=== PATIENT | male | born 1970 | race Caucasian/White ===

== ENCOUNTER 2017-10-09 09:29 | Emergency (ER) | payer BC ==
[2017-10-09 09:33] VITALS: BMI 42.2
--- NOTE | 2017-10-09 10:04 | DR.SOBA ---
HPI - Time Seen Time seen: 10:00 - Primary Care Physician Primary Care Physician: NAZANIN - HPI Comment HPI Comment: CHEST PAIN IS MAINLY PRESSURE AND NON RADIATING. HISTORY HTN AND DIABETES. - Complaints Chief Complaint Doctors Comments: CHEST PRESSURE AND SOB ON EXERTION TIMES 3 DAYS. Chief Complaint:: PT. C/O SHORTNESS OF BREATH AND CHEST PRESSURE WHICH BEGAN ON TUESDAY. PT. DENIES RADIATING PAIN. - Reviewed Nurses Notes Reviewed: Yes - Source History Provided: Patient, Family Member - Mode of Arrival Mode of Arrival: Ambulatory - Timing Onset of Chief Complaint: 10/06/17 - Duration Duration: Days - Context Onset:: At Rest, With Heavy Exertion PE Risk Factors:: None History of:: None Prehospital Care:: None - Modifying Factors Worsens:: Nothing Improves:: Nothing - If Chest Pain Quality: Heavy Location: Right Upper Chest - If Cough Cough: Nonproductive PMH - PMH Past Medical History: Yes Past Medical History: Diabetes, Dyslipidemia, Hypertension Past Surgical History: Yes Surgical History: Cholecystectomy - Family History History of Family Medical Conditions: Yes Family Medical History: [place], Coronary Artery Disease, Hypertension - Social History Does patient currently use any type of tobacco product: Yes Have you used tobacco products in the last 12 months: Yes Type of Tobacco Use: DIPS Does any household member use tobacco: No Alcohol Use: None Do you use any recreational Drugs:: No Lives With: Spouse Lives Where: Home - infectious screening In the last 2 months have you had wt loss of >10#?: NO Have you had fever, night sweats or hemotysis?: No Have you traveled outside the country in the last 6 months?: No Isolation: Standard ROS - Review of Systems Constitutional: Weakness, Fatigue. negative: Chills, Fever Eyes: No Symptoms Reported. negative: Eye Pain, Discharge ENTM: Nose Congestion. negative: Ear Pain Respiratoy: Non-Productive Cough, Short of Breath. negative: Wheezing, Hemoptysis Cardiovascular: Chest Pain Gastrointestinal/Abdominal: No Symptoms Reported Genitourinary: No Symptoms Reported Neurological: No Symptoms Reported Musculoskeletal: No Symptoms Reported Integumentary: No Symptoms Reported Hematologic/Lymphatic: No Symptoms Reported Endocrine: No Symptoms Reported All Other Systems: Reviewed and Negative PE - Vital Signs Vitals: Temperature 97.6 F Pulse Rate [Apical] 103 Pulse Rate 107 Respiratory Rate 20 Blood Pressure [Right Arm] 117/81 Blood Pressure 113/82 O2 Sat by Pulse Oximetry 96 - General Limitations: No Limitations General Appearance: Alert - Head Head Exam: Normal Inspection - Eyes Eye exam: Normal Appearance - ENT ENT Exam: Normal External Ear Exam - Neck Neck Exam: Trachea Midline - Chest Chest Inspection: Symmetric Chest Wall Rise - Respiratory Respiratory Exam: Normal Lung Sounds Bilat Respiratory Exam: Bilateral Rhonchi, Lower Rhonchi - Cardiovascular Cardiovascular Exam: Regular Rate, Normal Rhythm, Normal Heart Sounds - Abdominal Exam Abdominal Exam: Normal Bowel Sounds, Soft. negative: Tenderness - Extremities Extremities Exam: Edema - Back Back Exam: Normal Inspection - Neurologic Neurological Exam: Alert, Oriented X3 - Psychiatric Psychiatric Exam: Normal Affect, Normal Mood - Skin Skin Exam: Normal Color MDM - Additional Information Obtained Additional Information Obtained From: Family - Differential Diagnosis Differential Diagnosis: Bronchitis, CHF, Mycardial Infarction, Pneumonia, Pulmonary embolism Course - Treatment Treatment: SEE ORDERS. IV LASIX, PATIENT DIURESISNG IN ED. SOB IMPROVING. - Reevaluation 1st: Improved - Consultation Consultation Comments: DISCUSS PATIENT WITH DR. BURNS. WILL SEE PATIENT IN AM IN HIS OFFICE. - Education/Counseling Education/Counseling: Patient, Education Educated On: Diagnosis ROR - Labs Reviewed Laboratory Results Reviewed?: Yes Result Diagrams: 10/09/17 10:10 10/09/17 10:10 Laboratory: WBC 7.7 X10^3/uL (3.6-10.0) 10/09/17 10:10 RBC 4.36 X10^6/uL (4.7-6.0) L 10/09/17 10:10 Hgb 12.0 g/dL (13.5-18.0) L 10/09/17 10:10 Hct 35.9 % (42.0-54.0) L 10/09/17 10:10 MCV 82.4 fL (80.0-100.0) 10/09/17 10:10 MCH 27.4 pg (27.0-34.0) 10/09/17 10:10 MCHC 33.3 g/dL (33.0-35.0) 10/09/17 10:10 RDW 14.3 % (11.6-16.5) 10/09/17 10:10 Plt Count 249 X10^3/uL (150.0-450.0) 10/09/17 10:10 MPV 7.4 fL (7.4-11.0) 10/09/17 10:10 Neut % 60.3 % (42.0-75.0) 10/09/17 10:10 Lymph % 25.8 % (21.0-51.0) 10/09/17 10:10 Moody % 9.7 % (0.0-13.0) 10/09/17 10:10 Eos % 3.4 % (0.9-2.9) H 10/09/17 10:10 Baso % 0.8 % (0.2-1.0) 10/09/17 10:10 Neut # 4.6 x10^3/uL (2.2-4.8) 10/09/17 10:10 Lymph # 2.0 X10^3/uL (1.3-2.9) 10/09/17 10:10 Moody # 0.7 x10^3/uL (0.3-0.8) 10/09/17 10:10 Eos # 0.3 x10^3/uL (0.0-0.2) H 10/09/17 10:10 Baso # 0.1 X10^3/uL (0.0-0.1) 10/09/17 10:10 Absolute Nucleated RBC 0.0 /100WBC 10/09/17 10:10 D-Dimer 883 ng/mL (0-400) H* 10/09/17 10:10 Sodium 144 mmol/L (136-145) 10/09/17 10:10 Corrected Sodium 145 mmol/L (136-145) 10/09/17 10:10 Potassium 3.9 mmol/L (3.5-5.1) 10/09/17 10:10 Chloride 109 mmol/L (98-107) H 10/09/17 10:10 Carbon Dioxide 27.3 mmol/L (21-32) 10/09/17 10:10 BUN 11 mg/dL (7-18) 10/09/17 10:10 Creatinine 0.96 mg/dL (0.70-1.30) 10/09/17 10:10 Est GFR (MDRD) Af Amer > 60 (>60) 10/09/17 10:10 Est GFR (MDRD) Non-Af > 60 (>60) 10/09/17 10:10 Glucose 146 mg/dL (65-99) H 10/09/17 10:10 Calcium 8.3 mg/dL (8.5-10.1) L 10/09/17 10:10 Corrected Calcium 8.9 mg/dL (8.5-10.1) 10/09/17 10:10 Total Bilirubin 0.40 mg/dL (0.2-1.0) 10/09/17 10:10 AST 32 Units/L (15-37) 10/09/17 10:10 ALT 74 Units/L (12-78) 10/09/17 10:10 Alkaline Phosphatase 43 Units/L (46-116) L 10/09/17 10:10 Creatine Kinase 250 Units/L (39-308) 10/09/17 10:10 CK-MB (CK-2) 2.6 ng/mL (0-4.0) 10/09/17 10:10 CK/CKMB % Calc 1.0 % (<4) 10/09/17 10:10 Troponin I < 0.02 ng/mL (0-1.5) 10/09/17 10:10 B-Natriuretic Peptide 516 pg/mL (0-79) H* 10/09/17 10:10 Total Protein 6.5 g/dL (6.4-8.2) 10/09/17 10:10 Albumin 3.2 g/dL (3.4-5.0) L 10/09/17 10:10 Globulin 3.3 g/dL (2.5-4.5) 10/09/17 10:10 Albumin/Globulin Ratio 1.0 Ratio (1.1-2.1) L 10/09/17 10:10 - XRAY XRAY Interpreted by: Radiologist XRAY Findings: REPORT DISCUSS WITH PATIENT AND . - EKG Rhythm: NSR (EKG NOTED) - Diagnosis Discharge Problem: CHD (congenital heart disease) Chest pain Qualifiers: Chest pain type: precordial pain Qualified Code(s): R07.2 - Precordial pain Dyspnea Qualifiers: Dyspnea type: shortness of breath Qualified Code(s): R06.02 - Shortness of breath; R06.00 - Dyspnea, unspecified; R06.01 - Orthopnea - Discharge Plan Disposition: 01 HOME, SELF-CARE Condition: Stable Prescriptions: Furosemide [Lasix] 40 mg PO QAM #30 tab Potassium Chloride 10 meq PO DAILY #30 tab.er.prt - Follow ups/Referrals Follow ups/Referrals: YEISON MAXWELL [Primary Care Provider] - 3 days - Instructions Instructions: Heart Failure, [id number], Chest Pain Observation Additional Instructions: RETURN TO ED IF WORSE. SEE DR. BURNS IN AM AT [facility] IN [place] AT 13:00PM
[2017-10-09 10:25] LABS: BASOPHILS # (AUTO) 0.1 X10^3/uL (0.0-0.1); BASOPHILS % (AUTO) 0.8 % (0.2-1.0); EOSINOPHILS # (AUTO) 0.3 x10^3/uL (0.0-0.2); EOSINOPHILS % (AUTO) 3.4 % (0.9-2.9); HEMATOCRIT 35.9 % (42.0-54.0); LYMPHOCYTES % (AUTO) 25.8 % (21.0-51.0); MEAN CORPUSCULAR HEMOGLOBIN 27.4 pg (27.0-34.0); MEAN CORPUSCULAR HGB CONC 33.3 g/dL (33.0-35.0); MEAN CORPUSCULAR VOLUME 82.4 fL (80.0-100.0); MEAN PLATELET VOLUME 7.4 fL (7.4-11.0); MONOCYTES # (AUTO) 0.7 x10^3/uL (0.3-0.8); MONOCYTES % (AUTO) 9.7 % (0.0-13.0); NEUTROPHILS # (AUTO) 4.6 x10^3/uL (2.2-4.8); NEUTROPHILS % (AUTO) 60.3 % (42.0-75.0); PLATELET COUNT 249 X10^3/uL (150.0-450.0); RED BLOOD COUNT 4.36 X10^6/uL (4.7-6.0); RED CELL DISTRIBUTION WIDTH 14.3 % (11.6-16.5); WHITE BLOOD COUNT 7.7 X10^3/uL (3.6-10.0)
[2017-10-09 10:45] LABS: BLOOD UREA NITROGEN 11 mg/dL (7-18); CALCIUM 8.3 mg/dL (8.5-10.1); CARBON DIOXIDE 27.3 mmol/L (21-32); CHLORIDE 109 mmol/L (98-107); COR NA(FOR HYPERGLY) 145 mmol/L (136-145); CREATININE 0.96 mg/dL (0.70-1.30); SODIUM 144 mmol/L (136-145); TROPONIN I < 0.02 ng/mL (0-1.5); eGFR BLACK RACES > 60 (>60); eGFR NON BLACK RACES > 60 (>60)
[2017-10-09 10:49] LABS: ALANINE AMINOTRANSFERASE 74 Units/L (12-78); ALBUMIN 3.2 g/dL (3.4-5.0); ALKALINE PHOSPHATASE 43 Units/L (46-116); ASPARTATE AMINO TRANSFERASE 32 Units/L (15-37); COR CA(FOR HYPOALB) 8.9 mg/dL (8.5-10.1); CREATINE KINASE 250 Units/L (39-308); CREATINE KINASE MB 2.6 ng/mL (0-4.0); TOTAL PROTEIN 6.5 g/dL (6.4-8.2)
[2017-10-09] MEDS ORDERED: NS 500 ML IV 500 ML IV ONE (11:39)
[2017-10-09] MEDS ORDERED: NS 100 ML IV 100 ML IV ONE (11:50)
--- NOTE | 2017-10-09 12:26 | CT ---
STUDY: CTA CHEST WITH CONTRAST History: Shortness of breath and chest pressure. Comparison: None. Technique: Multiple axial images of the chest were obtained from the thoracic inlet to the upper abdo men after the administration of IV contrast. Image acquisition was optimized for evaluation of pulmon joseph arterial system. 3D, coronal and sagittal reformatted images were performed and reviewed. Automat ed exposure control (AEC) was utilized to adjust the MA and/or kV. Findings: Images were obtained during peak opacification of the aorta, and not during pulmonary arter ial phase. Pulmonary arteries are not adequately enhanced. There is no evidence of aortic aneurysm o r dissection. There is no significant pericardial effusion. Shotty lymph nodes, likely reactive, are noted in the mediastinum. No pathologically enlarged lymph n odes are identified. There appears to be some central pulmonary vascular congestion. There is increas ed prominence of pulmonary interstitial markings bilaterally, probably most prominent in the right mi ddle and lower lobes. Additionally, there is some patchy airspace opacities in both lower lobes and r ight middle lobe. There is no evidence of consolidation, significant effusion or pneumothorax. The visualized solid visceral organs in the upper abdomen are otherwise unremarkable. IMPRESSION: 1. Technically inadequate CTA examination of the chest for evaluation of central pulmonary arterial s ystem. 2. Central pulmonary vascular congestion, with prominence of pulmonary interstitial markings and patc hy opacities in both lower lobes and right middle lobe. Findings are suggestive of a interstitial michael ma. An infectious or inflammatory process could have a similar appearance. Clinical correlation is re quired. 3. Would consider ventilation-perfusion lung scan for further evaluation or repeat CTA as clinically warranted. Reported By:
[2017-10-09 12:28] VITALS: BP 117/81
--- NOTE | 2017-10-09 12:49 | RAD ---
The examination: AP chest History: SOB Findings: Borderline to mild cardiomegaly with central pulmonary vascular distention. There is no anamaria dence for consolidation or pneumothorax or pleural fluid. Impression: Cardiac prominence with pulmonary vascular congestion. Reported By:
[2017-10-09] MEDS ORDERED: LASIX IVP ONE ×2 (13:24→13:29)
[2017-10-09] MEDS ORDERED: MICRO K EXTEN CAP 10 MEQ PO ONE ×2 (14:41→14:42)
[2017-10-10 09:11] LABS: B-TYPE NATRIURETIC PEPTIDE 516 pg/mL (0-79)
== END 2017-10-09 14:48 | disposition home or self-care (01) ==
LOC: ER 09:41
DX: Q24.9 Congenital malformation of heart, unspecified (principal); R07.2 Precordial pain; R06.02 Shortness of breath; R06.00 Dyspnea, unspecified; R06.01 Orthopnea
CPT/HCPCS: 36415; 71045; 71275; 80053; 82550; 82553; 83880; 84484; 85025; 85378; 93005; 93010; 96365; 96374; 99283; 99285; A4222; J1940

== ENCOUNTER 2017-10-10 14:39 | Observation (INO) | payer BC ==
--- NOTE | 2017-10-10 14:51 | DR.H&P ---
H&P - History & Physical for Day of: H&P Date: 10/10/17 - Chief Complaint Chief Complaint: Shortness of breath - Allergies Allergies/Adverse Reactions: Allergies Allergy/AdvReac Type Severity Reaction Status Date / Time Penicillins Allergy Verified 10/09/17 09:34 - History of Present Illness History of Present Illness: the patient is a 42-year-old male who was seen in the emergency departmentast night complaining shortness of breath The patient did have some pulmonary edema noted on imaging studies. The patient did not want to be admitted at this and did want to try to follup in outpatient setting. However, when patient presented for hospital followup in the office setting there was noted to be an increase in shortness of breath. Subsequently, the patient will be admitted for further cardiac work up with tentative plans to transfer out for heart cath on 10/11/17. - Past Medical History Past Medical History: CHF, Diabetes, Dyslipidemia, Hypertension - Past Surgical History Surgical History: Cholecystectomy - Family History Family Medical History: [place], Coronary Artery Disease, Hypertension - Social History Drug Use: None - Review of Systems Constitutional: No Symptoms Reported Eyes: No Symptoms Reported ENT: No Symptoms Reported Respiratory: No Symptoms Reported Cardiovascular: Chest Pain, See HPI Gastrointestinal: No Symptoms Reported Genitourinary: No Symptoms Reported Musculoskeletal: No Symptoms Reported Skin: No Symptoms Reported Neurological: No Symptoms Reported - Physical Exam Vital Signs: Blood Pressure [Right Arm] 117/81 Blood Pressure 117/81 Oriented: Normal Eyes: Normal Ear: Normal Nose: Normal Throat: Normal Respiratory: Wheezes Throughout Cardiovascular: Normal : Normal Auscultation: Bowel Sounds: Normal Palpation: Normal Tenderness: Normal Skin: Normal Musculoskeletal: Normal Psychiatric: Normal Mood Description: Calm Affect: Normal Speech Pattern: Clear - Assessment/Plan (1) CHF (congestive heart failure) Qualifiers: Heart failure type: unspecified Status: Acute Plan: See chart for further orders (2) Chest pain Qualifiers: Chest pain type: precordial pain Qualified Code(s): R07.2 - Precordial pain Status: Acute Plan: See chart for further orders (3) Dyspnea Qualifiers: Dyspnea type: shortness of breath Qualified Code(s): R06.02 - Shortness of breath; R06.00 - Dyspnea, unspecified; R06.01 - Orthopnea Status: Acute Plan: See chart for further orders
[2017-10-10 17:01] LABS: BASOPHILS # (AUTO) 0.1 X10^3/uL (0.0-0.1); BASOPHILS % (AUTO) 1.1 % (0.2-1.0); EOSINOPHILS # (AUTO) 0.3 x10^3/uL (0.0-0.2); EOSINOPHILS % (AUTO) 2.8 % (0.9-2.9); HEMOGLOBIN 12.8 g/dL (13.5-18.0); LYMPHOCYTES # (AUTO) 2.1 X10^3/uL (1.3-2.9); LYMPHOCYTES % (AUTO) 21.7 % (21.0-51.0); MEAN CORPUSCULAR HEMOGLOBIN 27.3 pg (27.0-34.0); MEAN CORPUSCULAR HGB CONC 33.6 g/dL (33.0-35.0); MEAN CORPUSCULAR VOLUME 81.5 fL (80.0-100.0); MEAN PLATELET VOLUME 7.5 fL (7.4-11.0); MONOCYTES % (AUTO) 10.5 % (0.0-13.0); NEUTROPHILS # (AUTO) 6.3 x10^3/uL (2.2-4.8); NEUTROPHILS % (AUTO) 63.9 % (42.0-75.0); PLATELET COUNT 298 X10^3/uL (150.0-450.0); RED BLOOD COUNT 4.67 X10^6/uL (4.7-6.0); RED CELL DISTRIBUTION WIDTH 14.9 % (11.6-16.5); WHITE BLOOD COUNT 9.9 X10^3/uL (3.6-10.0)
[2017-10-10] MEDS: LASIX IVP SCH ×2 (17:14→21:40)
[2017-10-10 17:26] LABS: BILIRUBIN,URINE NEGATIVE (NEGATIVE); BLOOD/HEMOGLOBIN,URINE NEGATIVE (NEGATIVE); GLUCOSE, URINE NEGATIVE (NEGATIVE); KETONES,URINE NEGATIVE (NEGATIVE); LEUKOCYTE ESTERASE ,URINE NEGATIVE (NEGATIVE); NITRITES,URINE NEGATIVE (NEGATIVE); PH,URINE 6.5 (5.0 - 8.0); PROTEIN,URINE NEGATIVE (NEGATIVE); UROBILINOGEN,URINE NORMAL (NORMAL)
[2017-10-10 17:27] LABS: ALANINE AMINOTRANSFERASE 78 Units/L (12-78); ALBUMIN 3.4 g/dL (3.4-5.0); ALKALINE PHOSPHATASE 48 Units/L (46-116); ASPARTATE AMINO TRANSFERASE 31 Units/L (15-37); BLOOD UREA NITROGEN 14 mg/dL (7-18); CALCIUM 8.7 mg/dL (8.5-10.1); CARBON DIOXIDE 29.6 mmol/L (21-32); CHLORIDE 107 mmol/L (98-107); CKMB % 1.1 % (<4); COR NA(FOR HYPERGLY) 145 mmol/L (136-145); CREATINE KINASE 272 Units/L (39-308); CREATINE KINASE MB 2.9 ng/mL (0-4.0); CREATININE 1.04 mg/dL (0.70-1.30); SODIUM 144 mmol/L (136-145); TOTAL PROTEIN 6.9 g/dL (6.4-8.2); TROPONIN I < 0.02 ng/mL (0-1.5); eGFR BLACK RACES > 60 (>60); eGFR NON BLACK RACES > 60 (>60)
[2017-10-10 17:42] LABS: COLOR,URINE PALE YELLOW (YELLOW)
[2017-10-10 17:43] LABS: APPEARANCE,URINE CLEAR (CLEAR); BACTERIA,URINE TRACE /HPF (NEGATIVE); RBC,URINE NONE SEEN /HPF (NEGATIVE); SQUAMOUS EPITHELIAL CELL,UR NEGATIVE /HPF (NEGATIVE)
[2017-10-10 17:58] VITALS: BMI 44.6
--- NOTE | 2017-10-10 18:09 | RAD ---
Indication: Chest pain Exam: Portable chest Comparison: 10/09/2017 Findings: The heart is borderline enlarged but less prominent. The pulmonary vessels are less promine nt centrally . The lungs are hypoinflated with minimal interstitial and linear densities along the junior ng bases which are less prominent. No effusion is seen. The bones are intact. Impression: Slight decrease in the heart size with slowly resolving pulmonary edema. Resolving bibasilar atelectasis. Reported By:
[2017-10-10 21:20] LABS: CKMB % 0.9 % (<4); CREATINE KINASE 301 Units/L (39-308); CREATINE KINASE MB 2.6 ng/mL (0-4.0); TROPONIN I < 0.02 ng/mL (0-1.5)
[2017-10-10] MEDS: ASPIRIN PO SCH (21:40)
[2017-10-11] MEDS ORDERED: TYLENOL 325 MG TAB PO PRN (02:29)
[2017-10-11 03:06] LABS: CKMB % 0.9 % (<4); CREATINE KINASE 270 Units/L (39-308); CREATINE KINASE MB 2.3 ng/mL (0-4.0); TROPONIN I < 0.02 ng/mL (0-1.5)
[2017-10-11 07:47] LABS: BASOPHILS # (AUTO) 0.1 X10^3/uL (0.0-0.1); BASOPHILS % (AUTO) 1.3 % (0.2-1.0); EOSINOPHILS # (AUTO) 0.4 x10^3/uL (0.0-0.2); EOSINOPHILS % (AUTO) 3.6 % (0.9-2.9); HEMATOCRIT 42.2 % (42.0-54.0); HEMOGLOBIN 14.3 g/dL (13.5-18.0); LYMPHOCYTES # (AUTO) 2.3 X10^3/uL (1.3-2.9); LYMPHOCYTES % (AUTO) 21.8 % (21.0-51.0); MEAN CORPUSCULAR HEMOGLOBIN 27.6 pg (27.0-34.0); MEAN CORPUSCULAR VOLUME 81.2 fL (80.0-100.0); MEAN PLATELET VOLUME 7.6 fL (7.4-11.0); MONOCYTES % (AUTO) 9.6 % (0.0-13.0); NEUTROPHILS # (AUTO) 6.8 x10^3/uL (2.2-4.8); NEUTROPHILS % (AUTO) 63.7 % (42.0-75.0); PLATELET COUNT 332 X10^3/uL (150.0-450.0); RED BLOOD COUNT 5.19 X10^6/uL (4.7-6.0); RED CELL DISTRIBUTION WIDTH 14.8 % (11.6-16.5); WHITE BLOOD COUNT 10.6 X10^3/uL (3.6-10.0)
[2017-10-11 07:54] LABS: ALANINE AMINOTRANSFERASE 86 Units/L (12-78); ALBUMIN 3.6 g/dL (3.4-5.0); ALKALINE PHOSPHATASE 54 Units/L (46-116); ASPARTATE AMINO TRANSFERASE 45 Units/L (15-37); BLOOD UREA NITROGEN 15 mg/dL (7-18); CALCIUM 8.8 mg/dL (8.5-10.1); CHLORIDE 104 mmol/L (98-107); COR NA(FOR HYPERGLY) 144 mmol/L (136-145); CREATININE 1.05 mg/dL (0.70-1.30); SODIUM 143 mmol/L (136-145); TOTAL PROTEIN 7.4 g/dL (6.4-8.2); eGFR BLACK RACES > 60 (>60); eGFR NON BLACK RACES > 60 (>60)
[2017-10-11] MEDS ORDERED: K-DUR TAB 20 MEQ PO SCH (08:30)
[2017-10-11] MEDS ORDERED: MICRO K EXTEN CAP 10 MEQ PO SCH (09:00)
[2017-10-11] MEDS ORDERED: PROzac PO SCH (09:00)
[2017-10-11] MEDS ORDERED: COZAAR PO SCH (09:00)
[2017-10-11] MEDS ORDERED: TORADOL 15 MG VIAL IVP PRN (09:23)
[2017-10-11] MEDS: LASIX IVP SCH (09:45)
[2017-10-11] MEDS: ASPIRIN PO SCH (09:46)
[2017-10-11 11:12] VITALS: BP 132/84
== END 2017-10-11 11:00 | disposition short-term general hospital (02) | DRG 293 ==
LOC: MED/SURG 14:39
PROVIDERS: ADMIT Internal Medicine; ATTEND Internal Medicine
DX: I50.9 Heart failure, unspecified (principal); R07.2 Precordial pain; R06.02 Shortness of breath; J81.0 Acute pulmonary edema; E78.2 Mixed hyperlipidemia; I10 Essential (primary) hypertension; E11.65 Type 2 diabetes mellitus with hyperglycemia; R06.01 Orthopnea; R94.31 Abnormal electrocardiogram [ECG] [EKG]; D64.89 Other specified anemias
CPT/HCPCS: 36415; 71045; 80053; 81001; 82550; 82553; 84484; 85025; 93005; 93010; 94760; A4216; A4222; G0378; J1940

== ENCOUNTER 2017-12-06 22:52 | Emergency (ER) | payer BC ==
[2017-12-06 23:12] VITALS: BP 105/58; BMI 42.8
[2017-12-06] MEDS ORDERED: NS 1000 ML 1,000 ML ONE (23:14)
[2017-12-06] MEDS ORDERED: SALINE 3% 15 ML NEB TX ONE (23:31)
[2017-12-06] MEDS ORDERED: SALINE 3% 15 ML NEB TX NEB ONE (23:44)
[2017-12-06] MEDS ORDERED: NS 1000 ML 1,000 ML IV SCH (23:45)
[2017-12-06 23:57] LABS: BASOPHILS # (AUTO) 0.1 X10^3/uL (0.0-0.1); BASOPHILS % (AUTO) 0.5 % (0.2-1.0); EOSINOPHILS # (AUTO) 0.3 x10^3/uL (0.0-0.2); EOSINOPHILS % (AUTO) 2.1 % (0.9-2.9); HEMATOCRIT 40.9 % (42.0-54.0); HEMOGLOBIN 13.7 g/dL (13.5-18.0); LYMPHOCYTES # (AUTO) 1.5 X10^3/uL (1.3-2.9); LYMPHOCYTES % (AUTO) 11.8 % (21.0-51.0); MEAN CORPUSCULAR HEMOGLOBIN 27.5 pg (27.0-34.0); MEAN CORPUSCULAR HGB CONC 33.6 g/dL (33.0-35.0); MEAN CORPUSCULAR VOLUME 81.8 fL (80.0-100.0); MEAN PLATELET VOLUME 7.6 fL (7.4-11.0); MONOCYTES # (AUTO) 1.3 x10^3/uL (0.3-0.8); MONOCYTES % (AUTO) 9.8 % (0.0-13.0); NEUTROPHILS # (AUTO) 9.9 x10^3/uL (2.2-4.8); NEUTROPHILS % (AUTO) 75.8 % (42.0-75.0); PLATELET COUNT 263 X10^3/uL (150.0-450.0); RED BLOOD COUNT 4.99 X10^6/uL (4.7-6.0); WHITE BLOOD COUNT 13.1 X10^3/uL (3.6-10.0)
[2017-12-07 00:05] LABS: ALANINE AMINOTRANSFERASE 44 Units/L (12-78); ALBUMIN 3.6 g/dL (3.4-5.0); ALKALINE PHOSPHATASE 53 Units/L (46-116); ASPARTATE AMINO TRANSFERASE 26 Units/L (15-37); BLOOD UREA NITROGEN 17 mg/dL (7-18); CALCIUM 8.4 mg/dL (8.5-10.1); CARBON DIOXIDE 27.2 mmol/L (21-32); CHLORIDE 103 mmol/L (98-107); COR NA(FOR HYPERGLY) 140 mmol/L (136-145); CREATININE 0.99 mg/dL (0.70-1.30); SODIUM 139 mmol/L (136-145); TOTAL PROTEIN 7.4 g/dL (6.4-8.2); eGFR BLACK RACES > 60 (>60); eGFR NON BLACK RACES > 60 (>60)
[2017-12-07 00:12] LABS: LACTIC ACID 1.1 mmol/L (0.4-2.0)
--- NOTE | 2017-12-07 00:57 | RAD ---
Chest, two views Indication: Fever, shortness of breath, dry cough Comparison: 10/10/2017 Findings: There is stable borderline cardiomegaly without congestive failure. No focal consolidation, significant effusion or pneumothorax is identified. There is no acute osseous abnormality. Impression: No acute cardiopulmonary abnormality. Reported By:
--- NOTE | 2017-12-07 01:01 | DR.GENAD ---
HPI - PCP Primary Care Physician: sharda - Complaint/Symptoms Chief Complaint:: fever/sob/dry cough 2-3 days Self Treatment fo Chief Complaint: tylenol and regular scheduled meds - Nurses notes reviewed Nurses Notes Review: Yes - Source History Provided: Patient, Family Member - Mode of Arrival Mode of Arrival: Ambulatory - Timing Onset of Chief Complaint: 12/04/17 Came on: Suddenly - Duration Duration: Constant Duration: Days - Severity Severity: Moderate PMH - PMH Past Medical History: Yes Past Medical History: CHF, Depression, Diabetes, Headaches, Hypertension, Sleep Apnea Past Medical History Comment: tachy Past Surgical History: Yes Surgical History: Cholecystectomy - Family History History of Family Medical Conditions: Yes Family Medical History: Heart Failure, Hypertension - Social History Does patient currently use any type of tobacco product: No Have you used tobacco products in the last 12 months: No Type of Tobacco Use: None Alcohol Use: None Do you use any recreational Drugs:: No Lives With: Spouse, Family Lives Where: Home - infectious screening In the last 2 months have you had wt loss of >10#?: NO Have you had fever, night sweats or hemotysis?: No Have you traveled outside the country in the last 6 months?: No Isolation: Standard ROS - Review of Systems Constitutional: Weakness, Fatigue. negative: Chills, Fever Eyes: negative: Eye Pain, Discharge ENTM: negative: Ear Pain, Nose Discharge, Nose Congestion, Throat Pain Respiratoy: Short of Breath, Wheezing. negative: Productive Cough, Non- Productive Cough, Hemoptysis Cardiovascular: negative: Chest Pain, Edema, Palpitations Gastrointestinal/Abdominal: Abdominal Pain. negative: Diarrhea, Nausea, Vomiting Genitourinary: No Symptoms Reported. negative: Dysuria, Frequency, Hematuria Neurological: Headache, Weakness, Dizziness PE - Vital Signs Vitals: Temperature 102.4 F Pulse Rate 96 Respiratory Rate 18 Blood Pressure [Right Arm] 132/84 Blood Pressure 105/58 O2 Sat by Pulse Oximetry 120 ROR - Labs Reviewed Result Diagrams: 12/06/17 23:35 12/06/17 23:35 Laboratory: WBC 13.1 X10^3/uL (3.6-10.0) H 12/06/17 23:35 RBC 4.99 X10^6/uL (4.7-6.0) 12/06/17 23:35 Hgb 13.7 g/dL (13.5-18.0) 12/06/17 23:35 Hct 40.9 % (42.0-54.0) L 12/06/17 23:35 MCV 81.8 fL (80.0-100.0) 12/06/17 23:35 MCH 27.5 pg (27.0-34.0) 12/06/17 23: MCHC 33.6 g/dL (33.0-35.0) 12/06/17 23: RDW 15.0 % (11.6-16.5) 12/06/17 23:35 Plt Count 263 X10^3/uL (150.0-450.0) 12/06/17 23:35 MPV 7.6 fL (7.4-11.0) 12/06/17 23:35 Neut % (Auto) 75.8 % (42.0-75.0) H 12/06/17 23:35 Lymph % (Auto) 11.8 % (21.0-51.0) L 12/06/17 23:35 Tyrrell % (Auto) 9.8 % (0.0-13.0) 12/06/17 23:35 Eos % (Auto) 2.1 % (0.9-2.9) 12/06/17 23:35 Baso % (Auto) 0.5 % (0.2-1.0) 12/06/17 23:35 Neut # (Auto) 9.9 x10^3/uL (2.2-4.8) H 12/06/17 23:35 Lymph # (Auto) 1.5 X10^3/uL (1.3-2.9) 12/06/17 23:35 Tyrrell # (Auto) 1.3 x10^3/uL (0.3-0.8) H 12/06/17 23:35 Eos # (Auto) 0.3 x10^3/uL (0.0-0.2) H 12/06/17 23:35 Baso # (Auto) 0.1 X10^3/uL (0.0-0.1) 12/06/17 23:35 Absolute Nucleated RBC 0.0 /100WBC 12/06/17 23:35 Sodium 139 mmol/L (136-145) 12/06/17 23:35 Corrected Sodium 140 mmol/L (136-145) 12/06/17 23:35 Potassium 3.7 mmol/L (3.5-5.1) 12/06/17 23:35 Chloride 103 mmol/L (98-107) 12/06/17 23:35 Carbon Dioxide 27.2 mmol/L (21-32) 12/06/17 23:35 BUN 17 mg/dL (7-18) 12/06/17 23:35 Creatinine 0.99 mg/dL (0.70-1.30) 12/06/17 23:35 Est GFR (MDRD) Af Amer > 60 (>60) 12/06/17 23:35 Est GFR (MDRD) Non-Af > 60 (>60) 12/06/17 23:35 Glucose 140 mg/dL (65-99) H 12/06/17 23:35 Lactic Acid 1.1 mmol/L (0.4-2.0) 12/06/17 23:35 Calcium 8.4 mg/dL (8.5-10.1) L 12/06/17 23:35 Corrected Calcium TNP 12/06/17 23:35 Total Bilirubin 0.50 mg/dL (0.2-1.0) 12/06/17 23:35 AST 26 Units/L (15-37) 12/06/17 23:35 ALT 44 Units/L (12-78) 12/06/17 23:35 Alkaline Phosphatase 53 Units/L (46-116) 12/06/17 23:35 Total Protein 7.4 g/dL (6.4-8.2) 12/06/17 23:35 Albumin 3.6 g/dL (3.4-5.0) 12/06/17 23:35 Globulin 3.8 g/dL (2.5-4.5) 12/06/17 23:35 Albumin/Globulin Ratio 0.9 Ratio (1.1-2.1) L 12/06/17 23:35 - Diagnosis Discharge Problem: SOB (shortness of breath), Bronchitis CHF (congestive heart failure) Qualifiers: Heart failure type: combined systolic and diastolic Heart failure chronicity: acute on chronic Qualified Code(s): I50.43 - Acute on chronic combined systolic (congestive) and diastolic (congestive) heart failure - Discharge Plan Condition: Stable Prescriptions: Benzonatate [TESSALON PERLES *] 200 mg PO TID PRN #30 cap PRN Reason: Cough Cefdinir [Omnicef Cap 300 mg] 300 mg PO BID #20 cap - Follow ups/Referrals Follow ups/Referrals: SEBASTIEN BURNS [Primary Care Provider] - 2 weeks - Instructions Instructions: Shortness of Breath, Adult, [id number], Acute Bronchitis, Adult , Heart Failure, [id number] Additional Instructions: RETURN TO ED IF WORSE.
[2017-12-07] MEDS ORDERED: LASIX IVP ONE ×2 (01:05→01:15)
[2017-12-07] MEDS ORDERED: SOLU-Medrol 125 MG VIAL IVP ONE (01:07)
[2017-12-07] MEDS ORDERED: ROCEPHIN 1 GM IV PREMIX 1 GM/50 ML IV.SOLN. IV ONE (01:07)
[2017-12-07] MEDS ORDERED: DUONEB 0.5 MG/3 MG NEB ONE (01:09)
[2017-12-07] MEDS ORDERED: SOLU-Medrol 125 MG VIAL ONE (01:11)
[2017-12-07] MEDS ORDERED: DUONEB 0.5 MG/3 MG ONE (01:11)
[2017-12-07] MEDS ORDERED: ROCEPHIN VIAL 1 GM ONE (01:11)
== END 2017-12-07 01:57 | disposition home or self-care (01) ==
LOC: ER 22:52
DX: J40 Bronchitis, not specified as acute or chronic (principal); R06.02 Shortness of breath; I50.43 Acute on chronic combined systolic (congestive) and diastolic (congestive) heart failure
CPT/HCPCS: 36415; 71046; 80053; 83605; 85025; 87040; 94640; 96365; 96367; 96374; 96375; 99283; A4222; J0696; J1940; J2930; J7620

== ENCOUNTER 2020-08-11 13:23 | Observation (INO) ==
[2020-08-11] MEDS ORDERED: TUSSIONEX PENNKINETIC SUSP PO PRN (15:49)
[2020-08-11] MEDS ORDERED: REMDESIVIR 200 MG in NS 250 ML IV 250 ML IV SCH (15:49)
--- NOTE | 2020-08-11 16:35 | RAD ---
CHEST, PA/LAT ADULTHISTORY: PNEUMONIAStudy: PA and lateral views of the chest.Comparison:NoneFindings:The cardiomediastinal silhouette is normal.Questionable increased interstitial opacities in particular involving the lung bases. Osseous structures demonstrate no acute abnormality.IMPRESSION:1. Questionable increased interstitial opacities in the lung bases. Correlate clinically.Electronically signed by: CHARLA ELLSWORTH (Aug 11, 2020 16:33:09)
[2020-08-11] MEDS ORDERED: DUONEB 0.5 MG/3 MG (3 mL) NEB SCH (17:00)
[2020-08-11 17:16] LABS: BASOPHILS % (AUTO) 0.5 % (0.2-1.0); EOSINOPHILS # (AUTO) 0.1 x10^3/uL (0.0-0.2); EOSINOPHILS % (AUTO) 1.5 % (0.9-2.9); HEMATOCRIT 43.2 % (42.0-54.0); HEMOGLOBIN 14.8 g/dL (13.5-18.0); LYMPHOCYTES # (AUTO) 1.3 X10^3/uL (1.3-2.9); LYMPHOCYTES % (AUTO) 20.1 % (21.0-51.0); MEAN CORPUSCULAR HEMOGLOBIN 29.4 pg (27.0-34.0); MEAN CORPUSCULAR HGB CONC 34.2 g/dL (33.0-35.0); MEAN CORPUSCULAR VOLUME 85.9 fL (80.0-100.0); MEAN PLATELET VOLUME 7.7 fL (7.4-11.0); MONOCYTES # (AUTO) 1.4 x10^3/uL (0.3-0.8); MONOCYTES % (AUTO) 21.9 % (0.0-13.0); NEUTROPHILS # (AUTO) 3.6 x10^3/uL (2.2-4.8); PLATELET COUNT 240 X10^3/uL (150.0-450.0); RED BLOOD COUNT 5.03 X10^6/uL (4.7-6.0); WHITE BLOOD COUNT 6.4 X10^3/uL (3.6-10.0)
[2020-08-11] MEDS ORDERED: NS 1/2 1000 ML IV 1,000 ML IV ONE (17:23)
[2020-08-11 17:32] LABS: BAND NEUTROPHILS % 5 % (0-10)
[2020-08-11] MEDS: LEVAQUIN PREMIX IV 500 MG 500 MG/100 ML BAG IV SCH (17:32)
[2020-08-11 17:33] LABS: PLATELET MORPHOLOGY COMMENT NORMAL (NORMAL)
[2020-08-11] MEDS: NS 1/2 1000 ML IV 1,000 ML IV SCH (17:33)
[2020-08-11 17:34] LABS: ALANINE AMINOTRANSFERASE 61 Units/L (12-78); ALBUMIN 3.9 g/dL (3.4-5.0); ALKALINE PHOSPHATASE 56 Units/L (46-116); ASPARTATE AMINO TRANSFERASE 33 Units/L (15-37); BLOOD UREA NITROGEN 13 mg/dL (7-18); CALCIUM 9.3 mg/dL (8.5-10.1); CARBON DIOXIDE 26.2 mmol/L (21-32); CHLORIDE 100 mmol/L (98-107); CKMB % 0.6 % (<4); CREATINE KINASE 241 Units/L (39-308); CREATINE KINASE MB 1.5 ng/mL (0-4.0); CREATININE 1.07 mg/dL (0.70-1.30); SODIUM 136 mmol/L (136-145); TOTAL PROTEIN 7.6 g/dL (6.4-8.2); TROPONIN I < 0.02 ng/mL (0-1.5); eGFR NON BLACK RACES > 60 (>60)
[2020-08-11 17:34] LABS: ABG ALLEN TEST POS; ABG HCO3 27.9 mmol/L (22-26)
[2020-08-11] MEDS: ROBITUSSIN DM PO SCH ×3 (17:34→21:37)
[2020-08-11] MEDS: VSL#3 PO SCH (17:34)
[2020-08-11] MEDS: PEPCID 20 MG IV PREMIX* 20 MG/50 ML BAG IV SCH ×2 (17:34→21:37)
[2020-08-11] MEDS ORDERED: XOPENEX 1.25 MG/3 ML NEBULE NEB ONE (17:35)
[2020-08-11] MEDS: PROTONIX INJ 40 MG VIAL IVP SCH ×2 (17:36→21:37)
--- NOTE | 2020-08-11 17:39 | CT ---
CTA CHESTCLINICAL INDICATION: SOB, CHEST PAIN, COVID +PROCEDURE: Non gated axial images of the chest were obtained with intravenous contrast according to pulmonary embolism protocol. MIPS were reconstructed Dose reduction techniques including Automated Exposure Control (AEC) and adjustment of mA and kV were utlized.COMPARISON:NoneFINDINGS:Markedly suboptimal contrast bolus timing with no no evidence of a pulmonary embolism to the level of the central or main pulmonary arteries. More distal pulmonary emboli cannot be excluded.The heart is normal in size . No pericardial effusion . No suspicious mediastinal or axillary lymph nodes . No focal consolidations, pleural effusions or pneumothorax .Airways are patent . No suspicious pulmonary nodules or masses .Limited images of the upper abdomen are unremarkable.No aggressive osseous lesions.IMPRESSION:1. No evidence of pulmonary embolism.Electronically signed by: CHARLA ELLSWORTH (Aug 11, 2020 17:37:19)
[2020-08-11 17:46] VITALS: BMI 45.6
[2020-08-11] MEDS ORDERED: XOPENEX 1.25 MG/3 ML NEBULE NEB SCH (18:00)
[2020-08-11] MEDS: XOPENEX 1.25 MG/3 ML NEBULE NEB SCH (21:22)
[2020-08-11] MEDS: PULMICORT NEB TX 0.5 MG NEB SCH (21:22)
[2020-08-11] MEDS: SOLU-Medrol 40 MG VIAL IVP SCH (22:27)
[2020-08-12 05:37] LABS: BASOPHILS # (AUTO) 0.1 X10^3/uL (0.0-0.1); BASOPHILS % (AUTO) 1.4 % (0.2-1.0); EOSINOPHILS % (AUTO) 0.1 % (0.9-2.9); HEMOGLOBIN 13.8 g/dL (13.5-18.0); LYMPHOCYTES # (AUTO) 0.8 X10^3/uL (1.3-2.9); LYMPHOCYTES % (AUTO) 12.8 % (21.0-51.0); MEAN CORPUSCULAR HEMOGLOBIN 28.9 pg (27.0-34.0); MEAN CORPUSCULAR HGB CONC 33.6 g/dL (33.0-35.0); MEAN CORPUSCULAR VOLUME 85.8 fL (80.0-100.0); MEAN PLATELET VOLUME 7.3 fL (7.4-11.0); MONOCYTES # (AUTO) 0.3 x10^3/uL (0.3-0.8); MONOCYTES % (AUTO) 5.1 % (0.0-13.0); NEUTROPHILS # (AUTO) 4.8 x10^3/uL (2.2-4.8); NEUTROPHILS % (AUTO) 80.6 % (42.0-75.0); PLATELET COUNT 228 X10^3/uL (150.0-450.0); RED BLOOD COUNT 4.78 X10^6/uL (4.7-6.0); WHITE BLOOD COUNT 5.9 X10^3/uL (3.6-10.0)
[2020-08-12 05:49] LABS: ALANINE AMINOTRANSFERASE 52 Units/L (12-78); ALBUMIN 3.4 g/dL (3.4-5.0); ALKALINE PHOSPHATASE 49 Units/L (46-116); ASPARTATE AMINO TRANSFERASE 32 Units/L (15-37); BLOOD UREA NITROGEN 14 mg/dL (7-18); CALCIUM 8.7 mg/dL (8.5-10.1); CARBON DIOXIDE 25.6 mmol/L (21-32); CHLORIDE 103 mmol/L (98-107); COR NA(FOR HYPERGLY) 142 mmol/L (136-145); CREATININE 1.23 mg/dL (0.70-1.30); SODIUM 140 mmol/L (136-145); TOTAL PROTEIN 6.9 g/dL (6.4-8.2); eGFR NON BLACK RACES > 60 (>60)
[2020-08-12] MEDS: NS 1/2 1000 ML IV 1,000 ML IV SCH ×2 (06:24→21:41)
[2020-08-12] MEDS: SOLU-Medrol 40 MG VIAL IVP SCH ×3 (06:25→21:43)
[2020-08-12] MEDS: XOPENEX 1.25 MG/3 ML NEBULE NEB SCH ×3 (06:27→21:19)
--- NOTE | 2020-08-12 07:57 | RAD ---
HISTORYSOB, [id number], 1 [id number]/2020FINDINGSThe trachea is midline. Normal heart sizeThere is a left-sided pacemaker with a single lead. The lungs are well expanded. Minimal atelectasis in the left lower lobe. No dominant infiltrates.IMPRESSIONLinear atelectasis at the left lower lobe. No dominant infiltrates.Electronically signed by: Lilian Neal (Aug 12, 2020 07:55:49)
[2020-08-12] MEDS: ENTRESTO 24/26 MG TAB PO SCH ×2 (09:42→21:41)
[2020-08-12] MEDS: PROTONIX INJ 40 MG VIAL IVP SCH ×2 (09:43→21:42)
[2020-08-12] MEDS: REMDESIVIR 100 MG in NS 250 ML IV 250 ML IV SCH (09:43)
[2020-08-12] MEDS: NORVASC TAB 5 MG PO SCH ×2 (09:44→21:42)
[2020-08-12] MEDS: ROBITUSSIN DM PO SCH ×4 (09:44→21:43)
[2020-08-12] MEDS: PEPCID 20 MG IV PREMIX* 20 MG/50 ML BAG IV SCH ×2 (09:44→21:42)
[2020-08-12] MEDS: TRICOR TAB 145 MG PO SCH (09:44)
[2020-08-12] MEDS: VSL#3 PO SCH (09:45)
[2020-08-12] MEDS: LASIX PO SCH (09:45)
[2020-08-12] MEDS: ALDACTONE TAB 25 MG PO SCH (09:45)
[2020-08-12] MEDS: CELEXA PO SCH (09:45)
[2020-08-12] MEDS: ZEBETA TAB 5 MG PO SCH (09:45)
[2020-08-12] MEDS: LEVAQUIN PREMIX IV 500 MG 500 MG/100 ML BAG IV SCH (09:46)
[2020-08-12 09:47] LABS: ABG ALLEN TEST POS; ABG HCO3 24.3 mmol/L (22-26)
[2020-08-12] MEDS: PULMICORT NEB TX 0.5 MG NEB SCH ×2 (09:50→21:19)
--- NOTE | 2020-08-12 10:34 | DR.UPDATE ---
H&P Update History and Physical Update: History and Physical reviewed and patient examined. Changes noted: Yes with the following: IS A 49 YEAR OLD PATIENT OF OURS. HE PRESENTED WITH COMPLAINTS OF CHEST PRESSURE, COUGH, SHORNTESS OF BREATH, FEVER, AND GENERALIZED WEAKNESS. SYMPTOMS STARTED ON 08/09/20. HE WAS SEEN IN THE ER ON 08/10/20 AND TESTED POSITIVE FOR COVID-19. HE WAS NOT GIVEN ANY MEDICATIONS FOR TREATMENT UPON DISCHARGE FROM THE ER. PATIENT REPORTS THAT HE CONSULTED WITH HIS BROADCAST TECHNICIAN THIS MORNING AND THAT HIS BROADCAST TECHNICIAN SUGGEST THAT HE BE ADMITTED TO THE HOSPITAL FOR FURTHER EVALUATION AND TREATMENT DUE TO HIS COMORBIDITIES. HIS PMH INCLUDES: CHF, HYPERLIPIDEMIA, HTN, DM II, DEPRESSION, CHOLECYSTECTOMY, AND A DEFIBRILLATOR. HE WAS ADMITTED TO THE HOSPITAL FOR FURTHER EVALUATION AND TREATMENT OF COVID-19 AND ACUTE BRONCHITIS. ON ARRIVAL TO THE HOSPITAL, VITALS WERE 98.4-78-22-95%RA-125/67. LABS WERE OBTAINED. ABNORMAL LAB VALUES INCLUDE THE FOLLOWING: GLUCOSE 109, CRP 6.30, BNP 81.9. BLOOD AND SPUTUM CULTURES WERE SET UP. AN ABG WAS OBTAINED AND REVEALED: PH 7.420, PC02 43.0, P02 84.0, HC03 27.9, 02 SAT 96, BASE EXCESS 3.0, FI02 21.0. A CHEST XRAY WAS OBTAINED AND REVEALED: 1. Questionable increased interstitial opacities in the lung bases. WE OBTAINED A CHEST CTA TO RULE OUT PE , DISSECTING ANEURYSM. IT REVEALED: Markedly suboptimal contrast bolus timing with no no evidence of a pulmonary embolism to the level of the central or main pulmonary arteries. More distal pulmonary emboli cannot be excluded. The heart is normal in size . No pericardial effusion . No suspicious mediastinal or axillary lymph nodes . No focal consolidations, pleural effusions or pneumothorax .Airways are patent . No suspicious pulmonary nodules or masses. Limited images of the upper abdomen are unremarkable. No aggressive osseous lesions. AN EKG WAS OBTAINED AND REVEALED: SINUS RHYTHM WITH HR 76. ECHO REVEALED AN EJECTION FRACTION OF 27%, MILD AORTIC VALVE LEAFLET THICKENING WITH SCLEROSIS. MILD PULMONARY HYPERTENSION. HE WAS STARTED ON 1/2NS AT 75 ML/HR, REMDESIVIR 200MG IV X 1 DOSE, THEN 100MG IV DAILY, LEVAQUIN 500MG IV DAILY, PEPCID 20MG IV Q12H, PROTONIX 40MG IV BID, XOPENEX NEBS TID, PULMICORT NEBS BID, TUSSIONEX 5ML PO Q12H PRN, ROBITUSSIN DM 10 ML PO QID, SOLU-MEDROL 80MG IV Q8H, AND HIS HOME MEDICATIONS WERE RESUMED. OTHERWISE, WE PLAN TO FOLLOW UP WITH AM LABS, CHEST XRAY, ABG, AND CONTINUE TO MONITOR. TIME SPENT ON CLINICAL ASSESSMENT, REVIEWING LABS AND IMAGING, DECISION MAKING, AND DOCUMENTATION GREATER THAN 75 MINUTES. Prescription drug monitoring program results: PDMP reviewed and no concerns identified H&P Reviewed: Yes Patient was examined?: Yes
[2020-08-12] MEDS: LOVENOX INJ 30 MG SYR SC SCH ×2 (11:34→21:41)
[2020-08-12] MEDS ORDERED: NS 100 ML IV 100 ML IV ONE (16:46)
[2020-08-12] MEDS ORDERED: TYLENOL 325 MG TAB PO ONE (17:23)
[2020-08-12] MEDS ORDERED: BENADRYL INJ 50 MG VIAL IVP ONE (17:24)
[2020-08-13] MEDS ORDERED: NS 1/2 1000 ML IV 1,000 ML IV ONE ×2 (04:57→21:27)
[2020-08-13] MEDS: SOLU-Medrol 40 MG VIAL IVP SCH ×3 (05:29→22:04)
[2020-08-13] MEDS: NS 1/2 1000 ML IV 1,000 ML IV SCH ×3 (05:29→22:04)
[2020-08-13 06:10] LABS: BASOPHILS % (AUTO) 0.1 % (0.2-1.0); HEMATOCRIT 40.5 % (42.0-54.0); HEMOGLOBIN 13.2 g/dL (13.5-18.0); LYMPHOCYTES % (AUTO) 8.2 % (21.0-51.0); MEAN CORPUSCULAR HEMOGLOBIN 28.3 pg (27.0-34.0); MEAN CORPUSCULAR HGB CONC 32.6 g/dL (33.0-35.0); MEAN PLATELET VOLUME 7.9 fL (7.4-11.0); MONOCYTES # (AUTO) 0.7 x10^3/uL (0.3-0.8); MONOCYTES % (AUTO) 5.8 % (0.0-13.0); NEUTROPHILS # (AUTO) 10.7 x10^3/uL (2.2-4.8); NEUTROPHILS % (AUTO) 85.9 % (42.0-75.0); PLATELET COUNT 245 X10^3/uL (150.0-450.0); RED BLOOD COUNT 4.65 X10^6/uL (4.7-6.0); RED CELL DISTRIBUTION WIDTH 14.1 % (11.6-16.5); WHITE BLOOD COUNT 12.5 X10^3/uL (3.6-10.0)
[2020-08-13] MEDS: XOPENEX 1.25 MG/3 ML NEBULE NEB SCH ×3 (06:18→21:00)
[2020-08-13 06:37] LABS: ALANINE AMINOTRANSFERASE 40 Units/L (12-78); ALBUMIN 3.2 g/dL (3.4-5.0); ALKALINE PHOSPHATASE 40 Units/L (46-116); ASPARTATE AMINO TRANSFERASE 15 Units/L (15-37); BLOOD UREA NITROGEN 16 mg/dL (7-18); CALCIUM 8.7 mg/dL (8.5-10.1); CHLORIDE 107 mmol/L (98-107); COR CA(FOR HYPOALB) 9.3 mg/dL (8.5-10.1); COR NA(FOR HYPERGLY) 145 mmol/L (136-145); CREATININE 0.99 mg/dL (0.70-1.30); SODIUM 141 mmol/L (136-145); TOTAL PROTEIN 6.6 g/dL (6.4-8.2); eGFR NON BLACK RACES > 60 (>60)
[2020-08-13 06:42] LABS: CARBON DIOXIDE 23.9 mmol/L (21-32)
--- NOTE | 2020-08-13 06:42 | RAD ---
HISTORYCOVID+STUDYCHEST, 1 [id number]/15/2020TECHNIQUEAP chest, 2 imagesFINDINGSLeft chest wall pacemaker again noted. Cardiac silhouette mildly enlarged but stable. No consolidation, segmental collapse, pleural effusion, or pneumothorax noted.IMPRESSIONNo acute pulmonary process.Electronically signed by: Rob Worthington (Aug 13, 2020 06:41:05)
[2020-08-13] MEDS: ROBITUSSIN DM PO SCH ×4 (09:14→22:03)
[2020-08-13] MEDS: LEVAQUIN PREMIX IV 500 MG 500 MG/100 ML BAG IV SCH (09:14)
[2020-08-13] MEDS: VSL#3 PO SCH (09:14)
[2020-08-13] MEDS: PEPCID 20 MG IV PREMIX* 20 MG/50 ML BAG IV SCH ×2 (09:14→21:45)
[2020-08-13] MEDS: CELEXA PO SCH (09:15)
[2020-08-13] MEDS: TRICOR TAB 145 MG PO SCH (09:15)
[2020-08-13] MEDS: ALDACTONE TAB 25 MG PO SCH (09:15)
[2020-08-13] MEDS: LASIX PO SCH (09:15)
[2020-08-13] MEDS: PROTONIX INJ 40 MG VIAL IVP SCH ×2 (09:15→21:45)
[2020-08-13] MEDS: NORVASC TAB 5 MG PO SCH ×2 (09:16→22:02)
[2020-08-13] MEDS: ENTRESTO 24/26 MG TAB PO SCH ×2 (09:16→22:45)
[2020-08-13] MEDS: REMDESIVIR 100 MG in NS 250 ML IV 250 ML IV SCH (09:17)
[2020-08-13] MEDS: ZEBETA TAB 5 MG PO SCH (09:18)
[2020-08-13] MEDS: LOVENOX INJ 30 MG SYR SC SCH ×2 (09:35→21:45)
[2020-08-13] MEDS: PULMICORT NEB TX 0.5 MG NEB SCH ×2 (09:55→21:00)
[2020-08-13] MEDS ORDERED: REMDESIVIR 100 MG in NS 250 ML IV 250 ML IV ONE (21:00)
[2020-08-14] MEDS ORDERED: Atrovent NEB TX 0.02% ONE (02:44)
[2020-08-14 04:20] LABS: ABG ALLEN TEST POS; ABG HCO3 29.7 mmol/L (22-26); FRACTIONATED INSPIRED OXYGEN 21
[2020-08-14 05:28] LABS: BASOPHILS % (AUTO) 0.1 % (0.2-1.0); HEMATOCRIT 40.2 % (42.0-54.0); MEAN CORPUSCULAR HGB CONC 32.4 g/dL (33.0-35.0); MEAN CORPUSCULAR VOLUME 86.6 fL (80.0-100.0); MEAN PLATELET VOLUME 7.5 fL (7.4-11.0); MONOCYTES # (AUTO) 0.7 x10^3/uL (0.3-0.8); MONOCYTES % (AUTO) 5.1 % (0.0-13.0); NEUTROPHILS # (AUTO) 12.8 x10^3/uL (2.2-4.8); NEUTROPHILS % (AUTO) 87.8 % (42.0-75.0); PLATELET COUNT 250 X10^3/uL (150.0-450.0); RED BLOOD COUNT 4.64 X10^6/uL (4.7-6.0); RED CELL DISTRIBUTION WIDTH 14.2 % (11.6-16.5); WHITE BLOOD COUNT 14.6 X10^3/uL (3.6-10.0)
[2020-08-14 05:41] LABS: eGFR NON BLACK RACES > 60 (>60)
[2020-08-14 05:58] LABS: ALANINE AMINOTRANSFERASE 33 Units/L (12-78); ALBUMIN 3.3 g/dL (3.4-5.0); ALKALINE PHOSPHATASE 39 Units/L (46-116); ASPARTATE AMINO TRANSFERASE 9 Units/L (15-37); BLOOD UREA NITROGEN 18 mg/dL (7-18); CALCIUM 8.9 mg/dL (8.5-10.1); CARBON DIOXIDE 24.7 mmol/L (21-32); CHLORIDE 106 mmol/L (98-107); COR CA(FOR HYPOALB) 9.5 mg/dL (8.5-10.1); COR NA(FOR HYPERGLY) 145 mmol/L (136-145); CREATININE 1.01 mg/dL (0.70-1.30); SODIUM 142 mmol/L (136-145); TOTAL PROTEIN 6.4 g/dL (6.4-8.2)
[2020-08-14] MEDS ORDERED: Atrovent NEB TX 0.02% NEB SCH (06:00)
[2020-08-14] MEDS: SOLU-Medrol 40 MG VIAL IVP SCH ×2 (06:16→13:20)
[2020-08-14] MEDS: NS 1/2 1000 ML IV 1,000 ML IV SCH ×2 (06:16→13:21)
[2020-08-14] MEDS: CELEXA PO SCH (08:03)
[2020-08-14] MEDS: ALDACTONE TAB 25 MG PO SCH (08:04)
[2020-08-14] MEDS: LOVENOX INJ 30 MG SYR SC SCH (08:04)
[2020-08-14] MEDS: PROTONIX INJ 40 MG VIAL IVP SCH (08:04)
[2020-08-14] MEDS: PEPCID 20 MG IV PREMIX* 20 MG/50 ML BAG IV SCH (08:04)
[2020-08-14] MEDS: ROBITUSSIN DM PO SCH ×2 (08:05→12:39)
[2020-08-14] MEDS: VSL#3 PO SCH (08:05)
[2020-08-14] MEDS: LASIX PO SCH (08:05)
[2020-08-14] MEDS: TRICOR TAB 145 MG PO SCH (08:06)
--- NOTE | 2020-08-14 08:07 | RAD ---
HISTORYCOVID, SOBSTUDYCHEST, 1 VIEWCOMPARISONPortable chest August 13, 2020.FINDINGSThe trachea is midline. The cardiac silhouette is mildly enlarged but stable. A pacemaker is in place single lead in the right ventricle. The lungs are clear without focal infiltrate or effusion. The bony thorax is unremarkable.IMPRESSIONNo acute infiltrates at this time and no change from yesterday's exam.Electronically signed by: CARLOS MANUEL HSIEH (Aug 14, 2020 08:06:00)
[2020-08-14] MEDS: ZEBETA TAB 5 MG PO SCH (08:32)
[2020-08-14] MEDS: NORVASC TAB 5 MG PO SCH (08:32)
[2020-08-14] MEDS: ENTRESTO 24/26 MG TAB PO SCH (08:32)
[2020-08-14] MEDS ORDERED: TRICOR TAB 145 MG PO SCH (09:00)
[2020-08-14] MEDS: LEVAQUIN PREMIX IV 500 MG 500 MG/100 ML BAG IV SCH (09:01)
[2020-08-14] MEDS: PULMICORT NEB TX 0.5 MG NEB SCH (10:00)
[2020-08-14] MEDS: REMDESIVIR 100 MG in NS 250 ML IV 250 ML IV SCH (10:03)
[2020-08-14] MEDS ORDERED: REMDESIVIR 100 MG in NS 250 ML IV 250 ML IV ONE (12:00)
[2020-08-14 13:48] VITALS: BP 130/72
== END 2020-08-14 14:00 | disposition home or self-care (01) ==
LOC: MED/SURG
PROVIDERS: ADMIT Internal Medicine; ATTEND Internal Medicine
DX: R79.89 Other specified abnormal findings of blood chemistry; E11.65 Type 2 diabetes mellitus with hyperglycemia; R07.89 Other chest pain; E78.2 Mixed hyperlipidemia; R06.02 Shortness of breath; I50.42 Chronic combined systolic (congestive) and diastolic (congestive) heart failure; Z95.0 Presence of cardiac pacemaker; R79.82 Elevated C-reactive protein (CRP); U07.1 COVID-19; J40 Bronchitis, not specified as acute or chronic; I10 Essential (primary) hypertension

== ENCOUNTER 2022-07-20 00:08 | Observation (INO) ==
[2022-07-20 00:25] VITALS: BMI 42.5
--- NOTE | 2022-07-20 00:31 | DR.CP ---
HPI Time Seen Time Seen by Provider: 07/20/22 00:30 PCP Primary Care Physician: HPI Comment HPI Comment: PATIENT IS 51YR OLD MALE IN ER WITH INCREASING SOB AND CHEST PAIN TIMES FEW DAYS THAT IS WORSE TODAY. HISTOY CAD AND CHF. Complaint Chief Complaint Doctor Comments: PROGRESSIVE SOB AND CHEST PAIN FOR FEW DAYS THAT IS WORSE TODAY. Chief Complaint:: pt stated that he has CHf and today he has not been able to walk short distence without getting short of breath and he feels like he is overloaded with fluid, his head hurts ,dry cough and chest feels tight with a li ttle pain. Self Treatment fo Chief Complaint: entresto and his waterpills COVID-19 Coronavirus risk:travel/contact w/high risk person: No Has patient experienced Coronavirus symptoms: No Reviewed Nurses Notes Review: Yes Source History Provided: Patient Mode of Arrival Mode of Arrival: Ambulatory Timing Onset of Chief Complaint: 07/20/22 PMH PMH Past Medical History: Yes Past Medical History: CHF, Dyslipidemia, Hypertension and Sleep Apnea Past Medical History Comment: heart cathrization x3 Past Surgical History: Yes Surgical History: Cholecystectomy Family History History of Family Medical Conditions: Yes Family Medical History: Diabetes Mellitus, Cancer, [place] and Hypertension Social History Alcohol Use: Occasionally Do you use any recreational Drugs:: No Lives With: Family Lives Where: Home Infectious screening In the last 2 months have you had wt loss of >10#?: NO Have you had fever, night sweats or hemotysis?: No Have you traveled outside the country in the last 6 months?: No Isolation: Standard ROS Review of Systems Constitutional: No Symptoms Reported Eyes: No Symptoms Reported ENTM: negative Ear Discharge, Nose Discharge or Nose Congestion Respiratoy: Moist Cough and Short of Breath; negative Wheezing Cardiovascular: Chest Pain Gastrointestinal/Abdominal: negative Abdominal Pain, Diarrhea, Nausea or Vomiting Genitourinary: No Symptoms Reported; negative Dysuria Neurological: No Symptoms Reported and Weakness Musculoskeletal: Back Pain; negative Muscle Pain Integumentary: No Symptoms Reported; negative Rash or Juandice Hematologic/Lymphatic: Easy Bleeding and Easy Bruising Endocrine: No Symptoms Reported; negative Increased Thirst or Increased Urine Psychiatric: No Symptoms Reported All Other Systems: Reviewed and Negative PE Vitals Vitals: Temperature 98.1 F Pulse Rate 101 Respiratory Rate 20 Blood Pressure [Left Arm] 121/73 Blood Pressure [Right Arm] 128/72 Blood Pressure 102/67 O2 Sat by Pulse Oximetry 95 General General Appearance: Alert and In Distress Head Head Exam: Normal Inspection Eyes Eye exam: Normal Appearance; negative Scleral Icterus or Conjunctival Injection ENT ENT Exam: Normal Exam and Normal Oropharynx Chest Chest Inspection: Normal Inspection and Symmetric Chest Wall Rise; negative Tenderness Respiratory Respiratory Exam: Normal Lung Sounds Bilat; negative Accessory Muscle Use, Chest Wall Tenderness or Respiratory Distress Cardiovascular Cardiovascular Exam: Regular Rate, Normal Rhythm, Normal Heart Sounds and +S3; negative Systolic Murmur or Diastolic Murmur Pulse: Normal Opioid Opioid Risk Tool Age (Noah box if 16-45): No History of Preadolescent Sexual Abuse: No Total: 0 Total Score Risk Category: Low Risk Copyright: Arnaud HIGUERA predicting aberrant behaviors Discharge Plan Discharge Plan Patient Disposition: 01 HOME, SELF-CARE Condition: Stable Orders to Discharge Patient Discharge Orders: Transfer (Routine); Ordered 07/20/22 Ordered By: LENORE GARCIA
[2022-07-20] MEDS ORDERED: LASIX IVP ONE (00:32)
--- NOTE | 2022-07-20 01:02 | RAD ---
HISTORYPT C/O SOB, DRY COUGH, CHEST PAIN HTN, CHF, SLEEP APNEA, HEART CATH X 3, CHOLESTUDYCHEST, 1 [id number] trachea is midline. The cardiac silhouette is enlarged. Permanent pacing device.. The lungs are clear without focal infiltrate or effusion. The bony thorax is unremarkable.IMPRESSIONCardiomegaly.No active cardiopulmonary disease.Electronically signed by: Yogesh Kc (Jul 20, 2022 01:01:02)
[2022-07-20 01:09] LABS: BASOPHILS # (AUTO) 0.1 X10^3/uL (0.0-0.1); BASOPHILS % (AUTO) 1.2 % (0.2-1.0); EOSINOPHILS # (AUTO) 0.1 x10^3/uL (0.0-0.2); EOSINOPHILS % (AUTO) 1.1 % (0.9-2.9); HEMATOCRIT 37.3 % (42.0-54.0); HEMOGLOBIN 12.6 g/dL (13.5-18.0); LYMPHOCYTES # (AUTO) 1.3 X10^3/uL (1.3-2.9); MEAN CORPUSCULAR HEMOGLOBIN 28.7 pg (27.0-34.0); MEAN CORPUSCULAR HGB CONC 33.7 g/dL (33.0-35.0); MEAN CORPUSCULAR VOLUME 85.1 fL (80.0-100.0); MEAN PLATELET VOLUME 8.1 fL (7.4-11.0); MONOCYTES # (AUTO) 0.8 x10^3/uL (0.3-0.8); MONOCYTES % (AUTO) 8.6 % (0.0-13.0); NEUTROPHILS # (AUTO) 6.9 x10^3/uL (2.2-4.8); NEUTROPHILS % (AUTO) 75.1 % (42.0-75.0); RED BLOOD COUNT 4.38 X10^6/uL (4.7-6.0); RED CELL DISTRIBUTION WIDTH 15.2 % (11.6-16.5); WHITE BLOOD COUNT 9.2 X10^3/uL (3.6-10.0)
[2022-07-20 01:15] LABS: ALANINE AMINOTRANSFERASE 50 Units/L (12-78); ALBUMIN 3.6 g/dL (3.4-5.0); ALKALINE PHOSPHATASE 40 Units/L (46-116); ASPARTATE AMINO TRANSFERASE 48 Units/L (15-37); BLOOD UREA NITROGEN 20 mg/dL (7-18); CALCIUM 8.6 mg/dL (8.5-10.1); CARBON DIOXIDE 28.9 mmol/L (21-32); CHLORIDE 105 mmol/L (98-107); COR NA(FOR HYPERGLY) 143 mmol/L (136-145); CREATINE KINASE 163 Units/L (39-308); CREATININE 1.29 mg/dL (0.70-1.30); SODIUM 142 mmol/L (136-145); TOTAL PROTEIN 6.4 g/dL (6.4-8.2); eGFR NON BLACK RACES > 60 (>60)
[2022-07-20 01:38] LABS: BILIRUBIN,URINE NEGATIVE (NEGATIVE); BLOOD/HEMOGLOBIN,URINE NEGATIVE (NEGATIVE); GLUCOSE, URINE NEGATIVE (NEGATIVE); KETONES,URINE NEGATIVE (NEGATIVE); LEUKOCYTE ESTERASE ,URINE NEGATIVE (NEGATIVE); NITRITES,URINE NEGATIVE (NEGATIVE); PROTEIN,URINE NEGATIVE (NEGATIVE); UROBILINOGEN,URINE NORMAL (NORMAL)
[2022-07-20 01:40] LABS: APPEARANCE,URINE CLEAR (CLEAR); COLOR,URINE PALE YELLOW (YELLOW)
[2022-07-20 05:17] LABS: INR 1.16 (0.8-1.3)
[2022-07-20 05:19] LABS: BASOPHILS % (AUTO) 0.4 % (0.2-1.0); EOSINOPHILS # (AUTO) 0.1 x10^3/uL (0.0-0.2); EOSINOPHILS % (AUTO) 1.4 % (0.9-2.9); HEMATOCRIT 38.6 % (42.0-54.0); HEMOGLOBIN 12.8 g/dL (13.5-18.0); LYMPHOCYTES # (AUTO) 1.9 X10^3/uL (1.3-2.9); LYMPHOCYTES % (AUTO) 19.5 % (21.0-51.0); MEAN CORPUSCULAR HEMOGLOBIN 28.2 pg (27.0-34.0); MEAN CORPUSCULAR HGB CONC 33.2 g/dL (33.0-35.0); MEAN CORPUSCULAR VOLUME 84.9 fL (80.0-100.0); MEAN PLATELET VOLUME 8.2 fL (7.4-11.0); MONOCYTES # (AUTO) 0.9 x10^3/uL (0.3-0.8); MONOCYTES % (AUTO) 9.2 % (0.0-13.0); NEUTROPHILS # (AUTO) 6.9 x10^3/uL (2.2-4.8); NEUTROPHILS % (AUTO) 69.5 % (42.0-75.0); RED BLOOD COUNT 4.55 X10^6/uL (4.7-6.0); RED CELL DISTRIBUTION WIDTH 15.1 % (11.6-16.5); WHITE BLOOD COUNT 9.9 X10^3/uL (3.6-10.0)
[2022-07-20 05:33] LABS: ALANINE AMINOTRANSFERASE 48 Units/L (12-78); ALBUMIN 3.7 g/dL (3.4-5.0); ALKALINE PHOSPHATASE 42 Units/L (46-116); ASPARTATE AMINO TRANSFERASE 36 Units/L (15-37); BLOOD UREA NITROGEN 19 mg/dL (7-18); CALCIUM 8.7 mg/dL (8.5-10.1); CARBON DIOXIDE 29.3 mmol/L (21-32); CHLORIDE 105 mmol/L (98-107); COR NA(FOR HYPERGLY) 143 mmol/L (136-145); CREATININE 1.22 mg/dL (0.70-1.30); MAGNESIUM 1.9 mg/dL (2.0-2.9); SODIUM 142 mmol/L (136-145); TOTAL PROTEIN 6.6 g/dL (6.4-8.2); eGFR NON BLACK RACES > 60 (>60)
--- NOTE | 2022-07-20 08:07 | EKG ---
Test Reason : SHORT OF BREATH, CHEST PAIN Blood Pressure : */* mmHG Vent. Rate : 102 BPM Atrial Rate : 102 BPM P-R Int : 184 ms QRS Dur : 98 ms QT Int : 370 ms P-R-T Axes : 6 60 -22 degrees QTc Int : 482 ms Sinus tachycardia Low voltage QRS Nonspecific T wave abnormality Abnormal ECG Confirmed by Camden Reyes ([id number]) on 07/20/2022 9:08:41 AM Referred By: Confirmed By: Camden Reyes
--- NOTE | 2022-07-20 08:58 | EKG ---
Test Reason : C Blood Pressure : */* mmHG Vent. Rate : 94 BPM Atrial Rate : 94 BPM P-R Int : 198 ms QRS Dur : 106 ms QT Int : 384 ms P-R-T Axes : 70 44 26 degrees QTc Int : 480 ms Normal sinus rhythm Low voltage QRS Nonspecific T wave abnormality Abnormal ECG Confirmed by Camden Reyes ([id number]) on 07/20/2022 9:08:27 AM Referred By: Confirmed By: Camden Reyes
--- NOTE | 2022-07-20 12:12 | EKG ---
Test Reason : C Blood Pressure : */* mmHG Vent. Rate : 88 BPM Atrial Rate : 88 BPM P-R Int : 194 ms QRS Dur : 100 ms QT Int : 394 ms P-R-T Axes : 1 57 -18 degrees QTc Int : 476 ms Normal sinus rhythm Low voltage QRS Septal infarct , age undetermined Abnormal ECG When compared with ECG of 20-JUL-2022 04:30, Septal infarct is now present Confirmed by Camden Reyes ([id number]) on 07/21/2022 9:07:28 AM Referred By: Confirmed By: Camden Reyes
[2022-07-20] MEDS ORDERED: PATIENT'S HOME MEDICATION (Semaglutide [Ozempic] 0.25 mg or 0.5 mg(2 mg/1.5 mL) pen inject SUBCUT SCH (13:00)
[2022-07-20] MEDS: DEMADEX PO SCH ×2 (13:48→20:29)
[2022-07-20] MEDS: LOPRESSOR TAB 25 MG PO SCH ×2 (13:49→20:29)
[2022-07-20] MEDS: LOVENOX INJ 40 MG SYR SC SCH (13:49)
[2022-07-20] MEDS: ALDACTONE TAB 25 MG PO SCH (13:49)
[2022-07-20] MEDS: CELEXA PO SCH (13:49)
[2022-07-20] MEDS: MICRO K EXTEN CAP 10 MEQ PO SCH (13:58)
--- NOTE | 2022-07-20 17:16 | EKG ---
Test Reason : chest pain Blood Pressure : */* mmHG Vent. Rate : 83 BPM Atrial Rate : 83 BPM P-R Int : 200 ms QRS Dur : 108 ms QT Int : 380 ms P-R-T Axes : 11 67 -68 degrees QTc Int : 446 ms Normal sinus rhythm Incomplete left bundle branch block Nonspecific T wave abnormality Abnormal ECG When compared with ECG of 20-JUL-2022 12:07, (Unconfirmed) No significant change was found Confirmed by Camden Reyes ([id number]) on 07/21/2022 9:06:59 AM Referred By: Confirmed By: Camden Reyes
--- NOTE | 2022-07-20 19:29 | DR.H&P ---
H&P - History & Physical for Day of: H&P Date: 07/20/22 - Chief Complaint Chief Complaint: SHORT OF BREATH, LOWER EXTREMITY SWELLING, CHEST PAIN - History of Present Illness History of Present Illness: IS A 51 YEAR OLD PATIENT OF OURS. HE PRESENTED TO THE ER WITH COMPLAINTS OF CHEST PAIN AND SHORTNESS OF BREATH. SYMPTOMS STARTED TWO DAYS AGO. PATIENT REPORTS THAT SHORTNESS OF BREATH IS WORSE ON EXERTION. HE REPORTS THAT HE IS ONLY ABLE TO WALK A SHORT DISTANCE BEFORE HE HAS INCREASED SHORTNESS OF BREATH. PATIENT ALSO REPORTS LOWER EXTREMITY SWELLING AND FEELING LIKE HE IS OVERLOADED WITH FLUID, HEADACHE, AND DRY COUGH. HE DESC RIBES CHEST PAIN DULL AND INTERMITTENT. PATIENT HAS A HISTORY OF CONGESTIVE HEART FAILURE AND CORONARY ARTERY DISEASE. HE IS CURRENTLY ON ENTRESTO, ALDACTONE, AND TORSEMIDE FOR CHF. ON ARRIVAL TO THE ER, VITALS WERE: 98.1-100-20-95%-102/67. LABS WERE OBTAINED. WBC 9.2, RBC 4.38, HGB 12.6, HCT 37.3, PLT COUNT 248, SODIUM 142, PLT 4.1, CHLORIDE 105, BUN 20, CREATININE 1.29, GLUCOSE 141, CALCIUM 8.6, TOTAL BILI 0.60, AST 48, ALT 50, ALK PHOS 40, CREATINE KINASE 163, TROPONIN 11.2, BNP 854, TOTAL PROTEIN 6.4, ALBUMIN 3.6. URINALYSIS WAS OBTAINED AND IS UNREMARKABLE. COVID-19 NEGATIVE. A CHEST XRAY WAS OBTAINED AND REVEALED: The trachea is midline. The cardiac silhouette is enlarged. Permanent pacing device. The lungs are clear without focal infiltrate or effusion. The bony thorax is unremarkable. EKG REVEALS SINUS TACHYCARDIA WITH HR 102. DECISION WAS MADE TO ADMIT PATIENT TO THE HOSPITAL FOR FURTHER EVALUATION AND TREATMENT OF CHF EXACERBATION AND CHEST PAIN RULE OUT ACUTE OR. HE WAS STARTED ON LOVENOX 40MG SC DAILY AND HER HOME MEDICATIONS OF TORSEMIDE, ALDACTONE, POTASSIUM CHLORIDE, FENOFIBRATE, AND CITALOPRAM WERE RESUMED. WE WILL ALSO RESTART HIS METOPROLOL, BUT DECREASE IT TO 25MG PO BID. WE WILL OBTAIN AN ECHOCARDIOGRAM TODAY. WE WILL ALSO REPEAT SERIAL CARDIAC ENZYMES AND EKGs. OTHERWISE, WE WILL FOLLOW-UP WITH AM LABS AND CONTINUE TO MONITOR. TIME SPENT ON CLINICAL ASSESSMENT, REVIEWING LABS AND IMAGING, DECISION MAKING, AND DOCUMENTATION GREATER THAN 75 MINUTES. - Past Medical History Past Medical History: Hypertension, Dyslipidemia, Sleep Apnea, CHF - Past Surgical History Surgical History: Cholecystectomy - Family History Family Medical History: Diabetes Mellitus, Heart Failure, Hypertension - Social History Does patient currently use any type of tobacco product: No Have you used tobacco products in the last 12 months: No Type of Tobacco Use: None Does any household member use tobacco: No Alcohol Use: None Drug Use: None - Medications Home Medications: Penicillins Allergy (Verified 07/12/21 15:14) CONTINUE taking the following medications citalopram 40 mg tablet 1 tab PO QDAY 07/20/22 [History] doxycycline hyclate 100 mg tablet 1 tab PO BID 07/20/22 [History] fenofibrate micronized 200 mg capsule 1 cap PO QDAY 07/20/22 [History] fluticasone propionate 50 mcg/actuation nasal spray,suspension (Flonase Allergy Relief) 2 spray intranasal 2XD PRN 07/20/22 [History] metoprolol tartrate 50 mg tablet 1 tab PO BID 07/20/22 [History] potassium chloride 10 mEq capsule,extended release 1 cap PO QDAY 07/20/22 [History] sacubitril 97 mg-valsartan 103 mg tablet (Entresto) 1 tab PO BID 07/20/22 [History] semaglutide 0.25 mg or 0.5 mg (2 mg/1.5 mL) subcutaneous pen injector (Ozempic) 0.25 ea subcut WEEKLY 07/20/22 [History] spironolactone 25 mg tablet 1 tab PO QDAY 07/20/22 [History] torsemide 20 mg tablet 1 tab PO BID 07/20/22 [History] - Review of Systems Constitutional: Weakness Eyes: No Symptoms Reported ENT: No Symptoms Reported Respiratory: See HPI, Shortness of Breath, SOB with Excertion Cardiovascular: Chest Pain Gastrointestinal: No Symptoms Reported Genitourinary: No Symptoms Reported Musculoskeletal: No Symptoms Reported Skin: No Symptoms Reported Neurological: Weakness - Physical Exam Vital Signs: Temperature 97.7 F Pulse Rate [Brachial] 87 Pulse Rate 100 Respiratory Rate 20 Blood Pressure [Left Arm] 108/75 Blood Pressure [Right Arm] 122/84 Blood Pressure 109/75 O2 Sat by Pulse Oximetry 97 Oriented: Normal Eyes: Normal Ear: Normal Nose: Normal Throat: Normal Respiratory: Diminished Throughout Cardiovascular: Edema (BLE 1+ PITTING EDEMA ) : Normal Auscultation: Bowel Sounds: Normal Palpation: Normal Tenderness: Normal Skin: Normal Musculoskeletal: Normal Psychiatric: Normal Mood Description: Calm Affect: Normal Speech Pattern: Clear - Assessment/Plan (1) Acute exacerbation of CHF (congestive heart failure) Qualifiers: Heart failure type: unspecified Qualified Code(s): I50.9 - Heart failure, unspecified Status: Acute Plan: ADMIT, SUPPLEMENTAL OXYGEN, OBTAIN ECHO, SERIAL CARDIAC ENZYMES AND EKGS, LOVENOX 40MG SC DAILY AND HER HOME MEDICATIONS OF TORSEMIDE, ALDACTONE, POTASSIUM CHLORIDE, FENOFIBRATE, AND CITALOPRAM, METOPROL 25MG PO BID (2) Chest pain, rule out acute myocardial infarction Status: Acute (3) Coronary artery disease Qualifiers: Coronary Disease-Associated Artery/Lesion type: ambler artery [place] vs. transplanted heart: ambler heart Associated angina: unspecified whether angina present Qualified Code(s): I25.10 - Atherosclerotic heart disease of ambler coronary artery without angina pectoris Status: Chronic - Allergies Allergies/Adverse Reactions: Allergies Allergy/AdvReac Type Severity Reaction Status Date / Time Penicillins Allergy Verified 07/12/21 15:14
[2022-07-21 05:58] LABS: BASOPHILS # (AUTO) 0.1 X10^3/uL (0.0-0.1); BASOPHILS % (AUTO) 1.5 % (0.2-1.0); EOSINOPHILS # (AUTO) 0.2 x10^3/uL (0.0-0.2); EOSINOPHILS % (AUTO) 2.5 % (0.9-2.9); HEMATOCRIT 40.1 % (42.0-54.0); HEMOGLOBIN 13.2 g/dL (13.5-18.0); LYMPHOCYTES # (AUTO) 1.8 X10^3/uL (1.3-2.9); LYMPHOCYTES % (AUTO) 21.6 % (21.0-51.0); MEAN CORPUSCULAR VOLUME 84.8 fL (80.0-100.0); MEAN PLATELET VOLUME 8.3 fL (7.4-11.0); MONOCYTES # (AUTO) 0.8 x10^3/uL (0.3-0.8); MONOCYTES % (AUTO) 10.4 % (0.0-13.0); NEUTROPHILS # (AUTO) 5.2 x10^3/uL (2.2-4.8); RED BLOOD COUNT 4.73 X10^6/uL (4.7-6.0); WHITE BLOOD COUNT 8.1 X10^3/uL (3.6-10.0)
--- NOTE | 2022-07-21 06:03 | RAD ---
HISTORYSOB Relevant Clinical InformationSTUDYCHEST, 1 [id number] trachea is midline. The cardiac silhouette is mildly enlarged. Permanent pacing device.. The lungs are clear without focal infiltrate or effusion. The bony thorax is unremarkable.IMPRESSIONMild cardiomegalyNo active cardiopulmonary.Electronically signed by: Yogesh Kc (Jul 21, 2022 06:01:48)
[2022-07-21 06:11] LABS: ALANINE AMINOTRANSFERASE 37 Units/L (12-78); ALBUMIN 3.4 g/dL (3.4-5.0); ALKALINE PHOSPHATASE 37 Units/L (46-116); ASPARTATE AMINO TRANSFERASE 21 Units/L (15-37); BLOOD UREA NITROGEN 19 mg/dL (7-18); CALCIUM 8.5 mg/dL (8.5-10.1); CARBON DIOXIDE 31.4 mmol/L (21-32); CHLORIDE 105 mmol/L (98-107); COR NA(FOR HYPERGLY) 144 mmol/L (136-145); SODIUM 143 mmol/L (136-145); TOTAL PROTEIN 6.2 g/dL (6.4-8.2); eGFR NON BLACK RACES > 60 (>60)
[2022-07-21] MEDS ORDERED: TRICOR TAB 160 MG PO SCH (09:00)
[2022-07-21 09:16] VITALS: BP 115/72
[2022-07-21] MEDS: LOPRESSOR TAB 25 MG PO SCH (09:42)
[2022-07-21] MEDS: MICRO K EXTEN CAP 10 MEQ PO SCH (09:43)
[2022-07-21] MEDS: CELEXA PO SCH (09:43)
[2022-07-21] MEDS: LOVENOX INJ 40 MG SYR SC SCH (09:43)
[2022-07-21] MEDS: DEMADEX PO SCH (09:43)
[2022-07-21] MEDS: ALDACTONE TAB 25 MG PO SCH (09:43)
== END 2022-07-21 10:30 | disposition home or self-care (01) ==
LOC: MED/SURG 00:12 → ER 00:12 → MED/SURG 02:20
PROVIDERS: ADMIT Internal Medicine; ATTEND Internal Medicine
DX: R94.31 Abnormal electrocardiogram [ECG] [EKG]; I10 Essential (primary) hypertension; R51.9 Headache, unspecified; I50.9 Heart failure, unspecified; E78.5 Hyperlipidemia, unspecified; R07.9 Chest pain, unspecified; G47.30 Sleep apnea, unspecified; R05.9 Cough, unspecified; R06.02 Shortness of breath; I25.10 Atherosclerotic heart disease of native coronary artery without angina pectoris